=== PATIENT | male | born 1955 | race Caucasian/White ===

== ENCOUNTER 2024-06-20 08:10 | Observation (INO) | payer OTHER, SELFPAY ==
[2024-06-20] VITALS (32 sets, daily range): BP systolic 108–183; BP diastolic 73–128; BMI 30.3
[2024-06-20 04:09] LABS: % Basophils 0.8 % (0-2); % Eosinophils 0.8 % (0-6); % Immature Granulocytes 0.4 % (0-0.5); % Lymphocytes 25.6 % (20.5-51.1); % Monocytes 17.4 % (1.7-9.3); Absolute Lymphocytes 1.3 10^3/uL (1.2-3.4); Absolute Monocytes 0.9 10^3/uL (0.1-0.6); Absolute Neutrophils 2.8 10^3/uL (1.4-6.5); Hematocrit 49.7 % (39.0-52.0); Hemoglobin 17.3 g/dL (13.0-18.0); Mean Corp Hgb Conc. 34.8 g/dL (33.0-37.0); Mean Corpuscular Hgb 30.2 pg (27.0-31.0); Mean Corpuscular Volume 86.9 fL (80.0-94.0); Mean Platelet Volume 9.9 fL (7.4-10.4); Nucleated Red Blood Cells % 0 % (-); Platelet Count 198 10^3/uL (130-400); Red Blood Cell Count 5.72 10^6/uL (4.70-6.10); Red Cell Dist. Width 12.8 % (11.5-14.5); White Blood Cell Count 5.1 10^3/uL (4.8-10.8)
[2024-06-20] MEDS: CARDIZEM 20 MG IV (04:15)
[2024-06-20 04:26] LABS: ALT (SGPT) 35 U/L (0-50); AST (SGOT) 72 U/L (17-59); Albumin 5.2 g/dl (3.5-5.0); Alkaline Phosphatase 68 U/L (38-126); Blood Urea Nitrogen 34 mg/dl (9-20); Calcium 8.9 mg/dl (8.4-10.2); Carbon Dioxide 24 mmol/L (22-30); Chloride 101 mmol/L (98-107); Estimated Creatinine Clearance 54 ml/min; Glucose 111 mg/dl (70-99); Magnesium 2.1 mg/dl (1.6-2.3); Sodium 139 mmol/L (135-145); Total Bilirubin 0.7 mg/dl (0.2-1.3); Total Protein 9.3 g/dl (6.3-8.2)
[2024-06-20] MEDS: CARDIZEM 125 IV (04:33)
[2024-06-20 04:57] LABS: TSH Reflex To Free T4 1.95 uIU/ml (0.47-4.68)
--- NOTE | 2024-06-20 05:29 | ED.GENMED ---
History of Present Illness
General
Chief Complaint: Cardiac Symptoms
Source: patient
Exam Limitations: none
Time Seen by Provider: 06/20/24 04:28
Nursing documentation reviewed up to this point in time: agreed with
History of Present Illness
History of Present Illness:
This is a 68-year-old gentleman who has history of hypertension, chronically maintained on losartan. He presents with palpitations feeling that his heart is beating rapidly and somewhat irregular that began around 10:30 PM tonight. Palpitations
seem worse when he is lying down. He denies chest pain nor shortness of breath. No dyspnea on exertion. He does note mild URI several days ago, have since resolved. He had been using decongestant nasal spray for perhaps 2 days but stopped this
over a day or 2 ago. He denies decongestant use. Denies significant alcohol use. He does smoke marijuana from time to time.
No history of similar episodes in the past.
Past History
Past History
ED Past Medical History: HTN and Other (Previous Lyme's disease, previous TIA)
Social History
Tobacco: Non-smoker
Alcohol: Occasional
Drug: Marijuana
Personal:
Living: with family
Employment: Retired
Family History
Family History: Negative Diabetes, Hypertension or CAD
Phy Exam
Physical Exam
Physical Exam:
GENERAL: Alert , in no apparent distress
EYE: pupils equal and reactive
NECK: Supple, no significant adenopathy.
ENT: o/p clr, mmm.
CARDIAC: Irregularly irregular, tachycardic
LUNGS: Clear breath sounds bilaterally, no acute respiratory distress,
ABDOMEN: Soft, without focal tenderness, no r/g, no cvat
NEUROLOGICAL: Alert and oriented, no focal neuro deficits
SKIN: Warm and dry, skin intact.
MUSCULOSKELETAL: No edema, well perfused.
PSYCH: Normal and appropriate interaction.
Course
Orders/Labs/Results
Orders:
Orders
06/20/24 03:28
Electrocardiogram (*1) Urgent
Reason for Study: Palpitations
06/20/24 03:29
EKG- Treatment ONCE
06/20/24 03:55
CMP [Comprehensive Metabolic Panel] Urgent
Cardiovascular Evaluation Urgent
Comment: ADD ON
Complete Blood Count/With Diff Urgent
Glycohemoglobin (HgbA1c) Urgent
LDL Cholesterol, Direct Urgent
Comment: ADD ON
Magnesium Urgent
TSH Reflex To Free T4 Urgent
Troponin I Urgent
06/20/24 04:14
Diltiazem 125 mg/125 ml Nss [Cardizem] 125 mg in 125 ml .ROUTE .STK-MED
Diltiazem HCl [Cardizem] 20 mg IV NOW STA
Diltiazem HCl [Cardizem] 25 mg .ROUTE .STK-MED ONE
06/20/24 04:45
Diltiazem 125 mg/125 ml Nss [Cardizem] 125 mg in 125 ml IV PER PROTOCOL
Initial dose in mg/hr, then titrate:: 5
Titrate to keep:: Heart rate 80-100 bpm
Titrate by mg/hr:: 5 mg/hr
Frequency of titrations (minutes):: 15
Maximum dose in mg/hr:: 15
06/20/24 05:04
Propofol [Diprivan] 20 ml .ROUTE .STK-MED
06/20/24 05:56
Electrocardiogram (*1) Urgent
Reason for Study: Atrial Fibrillation
06/20/24 05:57
EKG- Treatment ONCE
06/20/24 06:25
CR Chest Portable - 1 View Urgent
Comment:
Reason For Exam: new onset afib with RVR, HTN, cough
Reason Study Needs to be Portable: Unable to Transport
06/20/24 06:26
PTT Urgent
06/20/24 06:58
Admit/Transfer Patient As Directed
Co-Sign Provider:
Level of Care: Observation services
Assign to:: IVU
Physician / Group: hospitalist
Diagnosis: afib rvr
PRN Pain Medication Management As Directed
May give lesser potent ordered pain med per pt: Yes
preference::
Protocol:: Medication orders for pain may be administered in a
manner that supports deferring to patient preference
when the pt is:
- Requesting an ordered lesser potent pain medication.
Least to most potent pain medications are defined
as: acetaminophen < NSAID < tramadol < opioids
(morphine, oxycodone, hydromorphone).
- Requesting a lesser dose of the same medication IF
ORDERED.
- Requesting a less intrusive route of administration
if both routes are prescribed by the provider (PO <
IV).
06/20/24 06:59
Code Status As Directed
Resuscitation Status: Full Code
06/20/24 07:03
Add On- LAB Stat
Tests Added?: magnesium level, Hemoglobin a1c, total chol, ldl, hdl, trig
Abnormal Lab Results
06/20/24
03:55
Absolute Monos (auto) 0.9 H 10^3/uL
(0.1-0.6)
Monocytes % 17.4 H %
(1.7-9.3)
BUN 34 H mg/dl
(9-20)
Creatinine 1.8 H mg/dL
(0.7-1.3)
Glucose 111 H mg/dl
(70-99)
AST 72 H U/L
(17-59)
Troponin I 0.090 H* ng/ml
Total Protein 9.3 H g/dl
(6.3-8.2)
Albumin 5.2 H g/dl
(3.5-5.0)
06/20/24 03:55
06/20/24 03:55
Vital Signs
Initial and Last Documented VS:
Initial Vital Signs
Resp
24
06/20/24 03:31
Last Documented Vital Signs
Temp Pulse Resp BP Pulse Ox
98.0 F 98 17 146/95 97
06/20/24 06:25 06/20/24 06:30 06/20/24 06:30 06/20/24 06:30 06/20/24 06:30
Procedures
Cardioversion
Indication:: Afib
Performed by:: myself
Synchronized?: Yes
Energy Used: 150 joules
Number of attempts: 2
Successful?: No (briefly successful in zoroastrianism of normal sinus rhythm but then reverted )
ASA Risk Score: Class II
Any reaction or bad outcome to prior sedation/anesthesia?: No history of a reaction
Sedation level to be attained: moderate
Chart and allergies reviewed: Yes
Patient reassessed prior to sedation: Yes
Time out completed at (validating right patient & procedure): 05:54
History of difficult intubation: No
Airway free of obstruction: Yes
Patient has a gag reflex: Yes
Patient is able to open mouth: Yes
Patient has no dentures: Yes
Patient has no loose teeth: Yes
Medication administered by Provider during Moderate Sedation: IV Propofol (mg)
Total dose administered: 90
Time drug administered: 05:55
Start Time: 05:55
Stop Time: 06:10
MDM/Problems Addressed
Differential Diagnosis Includes:
Patient presents with new onset palpitations and EKG shows atrial fibrillation with rapid ventricular response.
He is hemodynamically stable in fact a bit hypertensive.
Other than palpitations he remains asymptomatic, denies chest pain nor shortness of breath. No dizziness nor lightheadedness.
Will initiate IV Cardizem for rate control and this should help improve his blood pressure.
Unclear what his blood pressure has been running chronically.
Labs thus far reveal unremarkable CBC.
Chemistries show elevated creatinine of 1.8. This is trended up from only 1 previous result of 1.4 2019. Patient does not recall history of renal insufficiency but I suspect he may have a bit of renal insufficiency. He admits that he avoids
NSAIDs and only takes Tylenol as needed for pain.
TSH is pending.
Troponin is pending; patient denies chest pain but there is some concern for LVH with strain pattern on EKG.
Chronic conditions affecting care: HTN and Other (Questionable history of TIA in the past)
*Radiology
Radiology exam reviewed: preliminary read by ED provider (Chest x-ray shows borderline cardiomegaly, concern for potential mild CHF versus mild interstitial lung disease.)
*Pulse Oximetry
Patient hypoxic: no
*EKG
Interpreted by ED Provider?: Yes
Interpretation: abnormal
Comparison EKG: no comparison EKG present
Rate: tachycardiac
Rhythm: a-fib
[place]: left axis deviation
Interval: normal QT interval
QRS Pattern: left vent hypertrophy
Ischemia: non-specific ST changes
*Slitting Machine Operator Helper Interpretation
Rate: tachycardiac
Interpretation: abnormal
Rhythm: a-fib
*Critical Care Note
Total Time (30-74mins, 75-104mins- exclusive of procedures): 30
comment:
Critical care statement: A total of 30 minutes of critical care time was provided for this patient. This includes management of unstable vital signs, evaluation of the patient at bedside, reviewing the patient's pertinent medical records, discussion
with consultants, review of old EKGs and review of pertinent medical records. This time with separate from time utilized to perform the aforementioned documented procedures
Update Note
Update Note:
06:10
Troponin mildly elevated 0.09.
Patient continues to deny chest pain or shortness of breath. Unclear if this is an element of A-fib with RVR.
Questionably related to chronic kidney disease.
He is noted to be moderately hypertensive which may be an element as well.
Synchronized electrical cardioversion attempted and was successful x 2 in briefly restoring normal sinus rhythm but then returned to atrial fibrillation.
Elected to forego further cardioversion attempts.
Patient tolerated procedure without complications.
IV Cardizem resumed for rate control.
Patient is awake and alert, offers no complaints.
Case discussed with cardiology. Recommends patient be admitted to hospitalist service and will evaluate and consult.
Patient agreeable with this plan.
07:30
Chest x-ray shows borderline cardiomegaly, concern for mild CHF versus mild interstitial lung disease. No evidence of infiltrate.
Will add BNP.
ED Attending Note
-
Portions of this chart may have been created with voice recognition software.� Occasional wrong word or��sound alike� substitutions may have occurred due to the inherent limitations of voice recognition software.
Discharge Plan
Departure
Patient Disposition: Admit
Date of Disposition: 06/20/24
Time of Disposition: 06:26
Admit to doctor: Ligia
Presentation/result/management discussed w/ accepting MD/DO: Hospitalist
Condition: Serious
Discharge Problem:
New onset A-fib with RVR, Elevated troponin, Accelerated essential hypertension, Chronic kidney disease (CKD), stage III (moderate)
Prescriptions:
No Action
losartan 100 mg Tablet
100 mg PO DAILY
Referrals:
Beth Kruse DO [Family Provider] -
Interventions
Interventions:
*Risk Screen - Suicide Last Done: 06/20/24 03:31
*General Assessment Last Done: 06/20/24 04:05
*Neglect/Abuse Screening Last Done: 06/20/24 03:31
*ED COVID-19 Vaccine History Last Done: 06/20/24 04:05
ED- Pulmonary Assessment Last Done: 06/20/24 04:05
ED- Cardiac Assessment Last Done: 06/20/24 04:05
Discharge Date and Time
Print Language: JAPANESE
--- NOTE | 2024-06-20 06:47 | HPS.HSE ---
Family Physician
-
Family Physician: Beth Kruse
Chief Complaint
-
Palpitations
History of Present Illness
This is a 68-year-old with past medical history significant for CKD stage III and hypertension presenting to the emergency department with acute onset of palpitations at around 10pm as he laid to sleep.
Patient reports that he had URI symptoms starting about 4 days ago. Mostly sinus congestion and rhinorrhea. He denies any cough or shortness of breath. He denies fevers or chills. He denies nausea or vomiting. He reports mild diarrheal
symptoms. He does note some sick contacts. He otherwise denies chest pain, orthopnea PND or lower extremity swelling. Patient was tolerating oral normally.
He stated that he was in usual state of health up until just going to bed last night when he felt palpitations which he described as heart racing and beating out of his chest. There was no associated chest pain or shortness of breath. There was no
associated lightheadedness.
He denies any such prior episodes. He reports 1 episode of syncope that was due to vasovagal.
Patient reports occasional cocaine use with last use about a month ago. He reports occasional cannabis. He denies any other recreational drugs. Patient denies significant alcohol use.
In the emergency department he was tachycardic to the 150s on arrival. He was hemodynamically stable and had normal oxygen on room air. ECG shows atrial fibrillation at rate of [address] or T wave changes. Troponin was 0.09. CBC
was unremarkable. Electrolytes are within normal. Creatinine was 1.8 up from 1.42 years ago. Chest x-ray shows no acute infiltrates.
Patient was started on diltiazem and reports feeling better almost immediately. There was attempted cardioversion giving known onset of symptoms. He was cardioverted twice but ultimately unsuccessfully. He is currently in atrial fibrillation but
rate controlled in the 90s to low 100.
Medical History
Past Medical History
Past Medical History: Reports HTN and Renal Failure (CKD stage III)
Past Surgical History: Reports Other (anal fissure repair)
Social History
Tobacco: Non-smoker
Alcohol: Occasional
Drug: Marijuana and Cocaine (rare user)
Personal:
Living: With Family
Employment: Employed
Family History
Family History: Not pertinent
Allergies / Home Medications
Allergies reflects when Allergies were last updated in [employer].
Home Medications with original date entered in [employer]
Allergy/Medication List:
Allergies
Allergy/AdvReac Type Severity Reaction Status Date / Time
No Known Allergies Allergy Unverified 08/20/18 19:58
Home Medications
losartan 100 mg tablet 100 mg PO DAILY 06/20/24
Review of Systems
-
History Source: Patient
Constitutional: Reports No Symptoms
EENT: Reports No Symptoms
Respiratory: Reports No Symptoms
Cardiac: Reports Palpitations
Abdomen/GI: Reports No Symptoms
: Reports No Symptoms
Musculoskeletal: Reports No Symptoms
Skin: Reports No Symptoms
Neurological: Reports No Symptoms
Endocrine: Reports No Symptoms
Hematologic/Lymphatic: Reports No Symptoms
Psych: Reports No Symptoms
Physical Exam
Vital Signs
Vital Signs
Temp Pulse Resp BP Pulse Ox
98.0 F 98 17 146/95 97
06/20/24 06:25 06/20/24 06:30 06/20/24 06:30 06/20/24 06:30 06/20/24 06:30
Physical Exam
General: Well Developed, Well Nourished, No Apparent Distress and Comfortable
HEENT: NormoCephalic, Anicteric, Moist mucous membranes and Atraumatic
Respiratory: Clear
Cardiac: S1/S2 and Irregular Rhythm
Breast: Deferred by me
GI: Non Tender, Non Distended and Normal Bowel Sounds
Rectal: Deferred by Provider
Genito-urinary: Deferred by me
Musculoskeletal: No Clubbing
Skin: Warm
Neuro: AO x 3 and Nonfocal/grossly intact
Hematologic/Lymphatic: No Lymphadenopathy
Psych: Calm
Laboratory Results
-
06/20/24 03:55
06/20/24 03:55
Laboratory Results
Total Bilirubin 0.7 mg/dl (0.2-1.3) 06/20/24 03:55
AST 72 U/L (17-59) H 06/20/24 03:55
ALT 35 U/L (0-50) 06/20/24 03:55
Alkaline Phosphatase 68 U/L (38-126) 06/20/24 03:55
Troponin I 0.090 ng/ml H* 06/20/24 03:55
Data Reviewed
-
Diagnostic Radiology: Image Personally Visualized and interpreted
Medical Tests (Nuc Med, Echo, EKG etc): Image Personally Visualized and interpreted
Lab Data: Labs Reviewed by me
Old Records: Reviewed
Impression/Plan
-
IMPRESSION:
New onset rapid atrial fibrillation.
PLAN:
AFIB RVR - new onset rapid afib in patient with hypertension and CKD. No prior strokes, no known diabetes. Failure of cardioversion attempts x 2.
- admit to ivu
- currently rate controlled on diltiazem and asymptomatic
- onset of symptoms around 10pm thursday evening but unlikely to require further cardioversion given rate control
- CHA2Ds@Vasc = 2, start eliquis
- echo, a1c
- trend troponin
- cardiology consultation
DVT PPX - starting eliquis
Code status - full code
[2024-06-20 07:02] LABS: APTT 34.3 Sec (23.4-35.0)
[2024-06-20 07:41] LABS: HDL Cholesterol 37 mg/dl; LDL Cholesterol, Calculated 115 mg/dl; Total Cholesterol 174 mg/dl (50-199); Triglyceride 111 mg/dl (10-149); Very Low Density Lipoprotein 22 mg/dl (0-30)
[2024-06-20 07:51] LABS: LDL Cholesterol, Direct 90 mg/dl
[2024-06-20 08:26] LABS: NT-proBNP 940 pg/ml
--- NOTE | 2024-06-20 08:36 | CON.CAR ---
Addendum entered and electronically signed by uTan Jesus MD 06/20/24 10:26:
I saw and examined the patient.
The SUPERVISOR POST WAVE's note was reviewed and I agree with the note.
Comment:
68yo M with HTN and CKD who presents with palpitations found to be in A-fib with RVR. No obvious risk factors. He is physically active, does not have ALEKSANDER, does not drink excessive alcohol, and has no known structural heart disease. He has since
converted to normal sinus rhythm on a diltiazem drip. We will start him on 120 mg diltiazem ER daily. He has also been started on Eliquis 5 mg twice daily for anticoagulation. Echocardiogram to rule out structural heart disease. I advised him to
abstain from alcohol and get an outpatient sleep study. If his echocardiogram is normal, he can be discharged today and we will arrange outpatient follow-up.
Original Note:
Consultation
Consultation Request
Date/Time Consultation Requested: 06/20/24820
Date/Time Consultation Performed: 06/20/24820
Requesting Provider: Dr. Strong
Performing Provider: Aleida BUCHANAN for Dr. Jesus
Reason for Consultation: AFIB
Medical History
-
Chief Complaint: palpitations
History of Present Illness:
68 y/o male with hypertension and CKD (he was not awake of this, but labs 2019 creat 1.4, currently 1.8), TIA, hx Lyme disease who is here for evaluation of palpitations. Briefly, he had a cold from Thursday to Thursday. Last night around 10 PM, he
felt palpitations. He came to the ER and was seen to be in AFIB with RVR. Cardioversion attempt was made in ER, but was unsuccessful. He is now rate-controlled on a diltiazem drip and feeling improved. Eliquis has been initiated. He is in no
distress at the time of my assessment.
Past Medical History
Past Medical History: HTN and Other (as above)
Social History
Tobacco: Non-Smoker
Alcohol: Occasional
Drug: Marijuana (a few times per week) and Cocaine (once on ABEBA this past year)
Personal:
Living: With Family
Family History
Family History: Reviewed & Not Pertinent
Allergies / Home Medications
Allergy/AdvReac Type Severity Reaction Status Date / Time
No Known Allergies Allergy Unverified 08/20/18 19:58
�Medication �Instructions �Recorded �Confirmed �Type
losartan 100 mg tablet 100 mg PO DAILY 06/20/24 06/20/24 History
Review of Systems
-
History Source: Patient
All other systems: Negative unless noted
Respiratory: Other (cold with congestion last week)
Cardiac: Palpitations
Physical Exam
Vital Signs
Temp Pulse Resp BP Pulse Ox
98.0 F 98 17 146/95 97
06/20/24 06:25 06/20/24 06:30 06/20/24 06:30 06/20/24 06:30 06/20/24 06:30
Lab Results
06/20/24 03:55
06/20/24 03:55
Troponin I 0.090 ng/ml H* 06/20/24 03:55
Tbi-M-Yojldycfpup Pept 940 pg/ml 06/20/24 03:55
Physical Exam
General: Well Developed, Well Nourished and No Apparent Distress
HEENT: Normocephalic and Anicteric
Respiratory: Clear and Non Labored Respirations
Cardiac: Irregular Rhythm
Musculoskeletal: No Edema
Skin: Warm and Dry
Neuro: AO x 3
Psych: Calm
Impression / Plan
-
AFIB: new diagnosis, type unknown
-symptoms started last night at 10 PM
-continue IV diltiazem for now, which requires intensive monitoring- eventual transition to PO
-[id number] score is 4 for age, HTN, and hx TIA. Eliquis 5 mg PO BID has been initiated c/s CM to ensure affordable.
-will discuss rhythm control plan with neurological surgeon
-echo today
-TSH normal
-OP sleep study
-he does not routinely use cocaine, but I told him he should not ever use it again- he is agreeable. Additionally, we reviewed limiting ETOH, which he reports is not a problem.
CKD (YE?):
-creatinine was 1.4 2019, now 1.8- unknown values in between
-follow creat, management per primary team
HTN:
-elevated
-on losartan as OP
-monitor on diltiazem drip
Abnormal troponin:
-acute, non-ischemic myocardial injury in setting of AFIB with RVR
-trending to peak
-no CP- normally active without issue
-check echo
Data Reviewed
-
EKG: Tracing Personally Visualized and interpreted (AFIB LAFB LVH)
Radiology: Image Personally Visualized and interpreted (no acute disease of chest to my review)
Medical Tests (Nuc Med, Echo etc): Other (echo ordered)
Labs: Labs Reviewed by me
[2024-06-20] MEDS: ELIQUIS 5 MG PO (10:27)
[2024-06-20] MEDS: COZAAR 100 MG PO (10:27)
[2024-06-20] MEDS: CARDIZEM CD 120 MG PO (10:27)
[2024-06-20 10:36] LABS: Glycohemoglobin (HgbA1c) 5.5 % (4.0-5.6)
--- NOTE | 2024-06-20 15:32 | W.PN.UPDATE ---
Update Note
Progress Note Update
Nonbillable note
Paroxysmal A-fib with RVR -patient converted to NSR, s/p CV x2. Echocardiogram clear. Cardiology cleared patient to be discharged on regimen of oral diltiazem/Eliquis. Patient to follow-up in office. Patient instructed to avoid alcohol/caffeine
Troponin elevation - non ischemic myocardial injury related
CKD IIIB -no previous labs except in 2019 creatinine 1.4 today today creatinine 1.8. Instructed patient to follow-up with primary care physician for further follow-up.
Discharge home
--- NOTE | 2024-06-21 15:59 | W.DCSUMMARY ---
Discharge Summary
Discharge Data
Date of Admission: 06/20/24
Date of Discharge: 06/20/24
-
Pending Results: No
Hospital Course
Discharging Physician : Dr Ant Cook
Disposition : To home
Primary care physician : Dr Beth Kruse
Principal Discharge diagnosis :
Paroxysmal A-fib with rapid ventricular rate
Chronic Discharge diagnosis :
Essential hypertension
History of alcohol use
Chronic kidney disease stage IIIb
Hospital Course :
Patient is a 68-year-old male with past medical history came to ER with new onset of palpitation at home. In ER evaluation showing patient having A-fib with rapid ventricular rate. Patient underwent cardioversion attempt x 2 but remained in A-fib.
Patient was started on Cardizem drip with which patient converted to normal sinus rhythm. Cardiology was involved in care and patient had an echocardiogram which was normal. Cardiology recommended patient to be discharged on regimen of
diltiazem/Eliquis. Patient will follow-up with cardiology in the office postdischarge.
Important imaging findings :
None
Procedure findings :
None
Discharge Plan
-
Patient Disposition: Home (Routine Discharge)
Discharge Diagnosis/Procedures: Parox afib, CKD ?
Condition: Fair
Diet: Regular
Additional Diets: Avoid alcohol/Caffeine
Activity: As tolerated
Driving Restrictions: As prior to admission
Bathing Restrictions: OK to Shower
Referrals:
Beth Kruse DO [Family Provider] - in one week
Laila Porras CRNP [Specified Professional Personl] - 07/13/24 3:00 pm
Prescriptions:
New
diltiazem HCl 120 mg Capsule,Extended Release 24hr
120 mg PO DAILY Qty: 30 2RF
Eliquis 5 mg Tablet
5 mg PO BID Qty: 60 2RF
Continued
losartan 100 mg Tablet
100 mg PO DAILY
Discharge Orders:
Discharge Patient (As Directed); Ordered 06/20/24
Ordered By: Ant Cook
Discharge Date and Time
Discharge Date/Time: 06/20/24 15:30
Print Language: INDONESIAN
== END 2024-06-20 15:30 | disposition home or self-care (01) ==
LOC: ED 08:10
PROVIDERS: Physician Assistant; ADMITTING PHYSICIAN Internal Medicine; ATTENDING PHYSICIAN Hospitalist; EMERGENCY PHYSICIAN Emergency Medicine; FAMILY PHYSICIAN Family Medicine; OTHER PHYSICIAN Student in an Organized Health Care Education/Training Program
DX: I48.0 Paroxysmal atrial fibrillation (principal); R00.2 Palpitations; I12.9 Hypertensive chronic kidney disease with stage 1 through stage 4 chronic kidney disease, or unspecified chronic kidney disease; R00.0 Tachycardia, unspecified; R05.9 Cough, unspecified; I5A Non-ischemic myocardial injury (non-traumatic); R79.89 Other specified abnormal findings of blood chemistry; N18.32 Chronic kidney disease, stage 3b; J34.89 Other specified disorders of nose and nasal sinuses; R09.81 Nasal congestion; R19.7 Diarrhea, unspecified; R55 Syncope and collapse; F14.90 Cocaine use, unspecified, uncomplicated; F12.90 Cannabis use, unspecified, uncomplicated; J98.4 Other disorders of lung; I44.4 Left anterior fascicular block; I35.0 Nonrheumatic aortic (valve) stenosis; I49.3 Ventricular premature depolarization; Z86.73 Personal history of transient ischemic attack (TIA), and cerebral infarction without residual deficits; Z86.19 Personal history of other infectious and parasitic diseases
CPT/HCPCS: 71045; 80053; 80061; 83036; 83721; 83735; 83880; 84443; 84484; 85025; 85730; 92960; 93005; 93306; 96374; 99152; 99291; G0378

== ENCOUNTER 2024-06-29 22:43 | Emergency (ER) | payer OTHER, SELFPAY ==
[2024-06-29 22:46] VITALS: BP 207/127
[2024-06-29 23:26] VITALS: BP 184/99
[2024-06-30] VITALS: BP 170/101
[2024-06-30 00:11] LABS: % Basophils 0.7 % (0-2); % Eosinophils 1.5 % (0-6); % Immature Granulocytes 0.3 % (0-0.5); % Lymphocytes 19.9 % (20.5-51.1); % Monocytes 10.9 % (1.7-9.3); % Neutrophils 66.7 % (42.2-75.2); Absolute Basophils 0.1 10^3/uL (0-0.2); Absolute Eosinophils 0.1 10^3/uL (0-0.7); Absolute Lymphocytes 1.9 10^3/uL (1.2-3.4); Absolute Neutrophils 6.4 10^3/uL (1.4-6.5); Hematocrit 39.2 % (39.0-52.0); Hemoglobin 13.6 g/dL (13.0-18.0); Mean Corp Hgb Conc. 34.7 g/dL (33.0-37.0); Mean Corpuscular Hgb 29.7 pg (27.0-31.0); Mean Corpuscular Volume 85.6 fL (80.0-94.0); Nucleated Red Blood Cells % 0 % (-); Platelet Count 298 10^3/uL (130-400); Red Blood Cell Count 4.58 10^6/uL (4.70-6.10); Red Cell Dist. Width 12.1 % (11.5-14.5); White Blood Cell Count 9.5 10^3/uL (4.8-10.8)
--- NOTE | 2024-06-30 00:22 | ED.GENMED ---
History of Present Illness
General
Chief Complaint: Heart Rate Problem
Source: patient
Exam Limitations: none
Time Seen by Provider: 06/29/24 23:08
Nursing documentation reviewed up to this point in time: agreed with
History of Present Illness
History of Present Illness:
Pleasant 68-year-old male presents to the emergency department with palpitations. Has a history of atrial fibrillation. Was seen in the emergency department 2 days ago. Discharged home asymptomatic. Was going to bed this evening and wanted to
rinse his nose with saline spray. He grabbed Afrin instead. He was concerned because he felt some palpitations immediately after using Afrin. He came in for evaluation. Upon arrival he was asymptomatic. Patient is on Eliquis. He has not missed
a dose.
Past History
Past History
ED Past Medical History: HTN and Other (Previous Lyme's disease, previous TIA)
Social History
Tobacco: Non-smoker
Alcohol: Occasional
Drug: Marijuana
Personal:
Living: with family
Employment: Retired
Family History
Family History: Negative Diabetes, Hypertension or CAD
Review of Systems
Review of Systems
Allergies reviewed?: Yes
All Other Systems: ROS reviewed and negative except as documented in HPI and ROS
Constitutional: Reports no symptoms
EENT: Reports no symptoms
Respiratory: Reports no symptoms
Cardiac: Reports no symptoms
ABD/GI: Reports no symptoms
: Reports no symptoms
Musculoskeletal: Reports no symptoms
Skin: Reports no symptoms
Neurological: Reports no symptoms
Endocrine: Reports no symptoms
Hematologic/Lymphatic: Reports no symptoms
Psychiatric: Reports no symptoms
Phy Exam
General Physical Exam
General Presentation: well appearing and no apparent distress
General Skin: warm and dry
General Habitus: normal
General Mental: alert
General Hydration: appears well hydrated
ENT Exam
ENT Exam: EOMI, pharynx normal, neck supple and normocephalic
Eye Exam
Eye Exam: PERRL, cornea clear and conjunctiva normal
Cardiovascular Exam
Cardiovascular Exam: regular rate/rhythm, no edema, no murmur and normal peripheral pulses
Pulmonary Exam
Pulmonary Exam: lungs clear, no respiratory distress, no rales, no crackles, no rhonchi, no stridor, no wheezing and no cough
Gastrointestinal Exam
Gastrointestinal Exam: normal bowel sounds, non tender, soft, no organomegaly, no pulsatile mass and non distended
Neurological Exam
Neurological Exam: alert, oriented x3, no motor deficits and speech normal
Musculoskeletal Exam
Musculoskeletal Exam: full ROM and no edema
Skin Exam
Skin Exam: normal color, warm/dry, no rash and no petechia
Psychiatric Exam
Psychiatric Exam: normal mood/affect
Course
Orders/Labs/Results
Orders:
Orders
06/29/24 22:48
ECG [Electrocardiogram (*1)] Urgent
Reason for Study: Tachycardia
EKG- Treatment ONCE
06/29/24 23:58
Complete Blood Count/With Diff Urgent
Comprehensive Metabolic Panel Urgent
TSH Urgent
Troponin I Urgent
Abnormal Lab Results
06/29/24
23:58
RBC 4.58 L 10^6/uL
(4.70-6.10)
Absolute Monos (auto) 1.0 H 10^3/uL
(0.1-0.6)
Lymphocytes % 19.9 L %
(20.5-51.1)
Monocytes % 10.9 H %
(1.7-9.3)
BUN 40 H mg/dl
(9-20)
Creatinine 1.6 H mg/dL
(0.7-1.3)
06/29/24 23:58
06/29/24 23:58
Vital Signs
Initial and Last Documented VS:
Initial Vital Signs
Temp Pulse Resp BP Pulse Ox
98.2 F 86 20 207/127 98
06/29/24 22:46 06/29/24 22:46 06/29/24 22:46 06/29/24 22:46 06/29/24 22:46
Last Documented Vital Signs
Temp Pulse Resp BP Pulse Ox
98.2 F 63 9 170/101 99
06/29/24 22:46 06/30/24 00:45 06/30/24 00:45 06/30/24 00:00 06/30/24 00:48
*Critical Care Note
Total Time (30-74mins, 75-104mins- exclusive of procedures): Not Applicable
ED Attending Note
-
Portions of this chart may have been created with voice recognition software.� Occasional wrong word or��sound alike� substitutions may have occurred due to the inherent limitations of voice recognition software.
Discharge Plan
Departure
Patient Disposition: Home (Routine Discharge)
Date of Disposition: 06/30/24
Time of Disposition: :
Patient with high blood pressure during this ER visit?: Yes
Condition: Good
Discharge Problem:
Palpitations, Chronic kidney disease (CKD), stage III (moderate)
Instructions: Palpitations (DC), BLOOD PRESSURE
Prescriptions:
No Action
losartan 100 mg Tablet
100 mg PO DAILY
diltiazem HCl 120 mg Capsule,Extended Release 24hr
120 mg PO DAILY Qty: 30 2RF
Eliquis 5 mg Tablet
5 mg PO BID Qty: 60 2RF
Referrals:
Beth Kruse DO [Family Provider] -
Activity Restrictions/Additional Instructions:
It was a pleasure meeting you and taking part in your care. We hope for your continued healing and wellness.
Please read discharge instructions in their entirety. However, they are for general education and may not describe your exact diagnosis at discharge. Information on your ER visit and medical conditions were discussed with you along with appropriate
follow up information...
If indicated, please take your medications as instructed and indicated on discharge paperwork.
Please schedule a follow up appointment as directed. Call to schedule an appointment
Please return to the emergency department with ANY change in, persisting, or worsening of symptoms. If any of your symptoms do not improve, or persist, or become more severe within 6-12 hours, please return to the emergency department for further
care.
Please return to the emergency department if you develop a headache, neck pain/stiffness, fever greater than 100.4F, chest pain, shortness of breath, persistent nausea, vomiting, slurred speech, difficulty walking, numbness/tingling, weakness, signs
of infection or any other symptoms that are worrisome to you.
If you have any questions or concerns please do not hesitate to call the Hospital at or E-mail me directly at [email or web address]
Interventions
Interventions:
*Risk Screen - Suicide Last Done: 06/29/24 22:46
*General Assessment Last Done: 06/30/24 00:46
*Neglect/Abuse Screening Last Done: 06/29/24 22:46
*ED COVID-19 Vaccine History Last Done: 06/30/24 00:46
ED- Cardiac Assessment Last Done: 06/30/24 00:48
ED- Pulmonary Assessment Last Done: 06/30/24 00:48
Discharge Date and Time
Print Language: YAKUT
[2024-06-30 00:34] LABS: ALT (SGPT) 37 U/L (0-50); AST (SGOT) 34 U/L (17-59); Alkaline Phosphatase 66 U/L (38-126); Blood Urea Nitrogen 40 mg/dl (9-20); Calcium 9.2 mg/dl (8.4-10.2); Carbon Dioxide 25 mmol/L (22-30); Chloride 103 mmol/L (98-107); Glucose 99 mg/dl (70-99); Sodium 136 mmol/L (135-145); Total Bilirubin 0.8 mg/dl (0.2-1.3); Total Protein 7.1 g/dl (6.3-8.2); eGFR 47.23
[2024-06-30 00:40] LABS: Troponin I 0.014 ng/ml
[2024-06-30 01:00] VITALS: BP 193/102
[2024-06-30 01:10] LABS: TSH 0.64 uIU/ml (0.47-4.68)
== END 2024-06-30 01:35 | disposition home or self-care (01) ==
LOC: EMR 22:43
PROVIDERS: EMERGENCY PHYSICIAN Student in an Organized Health Care Education/Training Program; FAMILY PHYSICIAN Family Medicine
DX: R00.2 Palpitations (principal); N18.30 Chronic kidney disease, stage 3 unspecified; I12.9 Hypertensive chronic kidney disease with stage 1 through stage 4 chronic kidney disease, or unspecified chronic kidney disease; I48.91 Unspecified atrial fibrillation; Z86.73 Personal history of transient ischemic attack (TIA), and cerebral infarction without residual deficits; Z79.01 Long term (current) use of anticoagulants
CPT/HCPCS: 99283; 80053; 84443; 84484; 85025; 93005

== ENCOUNTER 2024-12-04 09:40 | Emergency (ER) | payer OTHER, SELFPAY ==
[2024-12-04 09:46] VITALS: BP 176/110
[2024-12-04 10:05] LABS: Hematocrit 40.2 % (39.0-52.0); Hemoglobin 14.1 g/dL (13.0-18.0); Mean Corp Hgb Conc. 35.1 g/dL (33.0-37.0); Mean Corpuscular Volume 85.7 fL (80.0-94.0); Nucleated Red Blood Cells % 0 % (-); Platelet Count 248 10^3/uL (130-400); Red Cell Dist. Width 12.2 % (11.5-14.5)
[2024-12-04 10:23] LABS: ALT (SGPT) 28 U/L (0-50); AST (SGOT) 35 U/L (17-59); Albumin 4.3 g/dl (3.5-5.0); Alkaline Phosphatase 62 U/L (38-126); Blood Urea Nitrogen 34 mg/dl (9-20); Calcium 9.3 mg/dl (8.4-10.2); Carbon Dioxide 27 mmol/L (22-30); Chloride 105 mmol/L (98-107); Glucose 127 mg/dl (70-99); Potassium 3.9 mmol/L (3.5-5.1); Sodium 136 mmol/L (135-145); Total Protein 7.8 g/dl (6.3-8.2); eGFR 46.93
[2024-12-04 11:20] VITALS: BMI 31.0
--- NOTE | 2024-12-04 11:42 | ED.SKININJ ---
HPI-Injury
General
Chief Complaint: Skin Problem
Time Seen by Provider: 12/04/24 11:30
History of Present Illness-Injury
Initial Injury comments:
Patient presents the emergency department for wound check. He is a 69-year-old male with a history of atrial fibrillation on Eliquis who presents emergency department with left anterior valles wound. States he struck his leg on a tractor this past
Thursday. He was seen in urgent care started on Keflex and had wound dressing placed. When he remove the dressing and pulled a small piece of skin off. He would like this checked for infection. Denies any fevers or chills. Denies any worsening
of this pain.
Past History
Past History
ED Past Medical History: HTN and Other (Previous Lyme's disease, previous TIA)
Social History
Tobacco: Non-smoker
Alcohol: Occasional
Drug: Marijuana
Personal:
Living: with family
Employment: Retired
Family History
Family History: Negative Diabetes, Hypertension or CAD
Phy Exam
Physical Exam
Physical Exam:
General: No acute distress
Head: NCAT
Neck, Normal in appearance, no swelling
Respiratory: No Respiratory distress
Abdomen: No distension
Ext: There is a 4 x 4 round wound that is partially unroofed with red well-perfused tissue beneath. There is no surrounding induration or warmth. There is no purulence. No hematoma.
Neuro: OBRIEN, AOx4
Psych: Normal affect
Skin: Normal color
Course
Orders/Labs/Results
Orders:
Orders
12/04/24 09:57
CMP [Comprehensive Metabolic Panel] Urgent
Complete Blood Count/With Diff Urgent
Abnormal Lab Results
12/04/24
09:57
RBC 4.69 L 10^6/uL
(4.70-6.10)
Absolute Monos (auto) 0.7 H 10^3/uL
(0.1-0.6)
BUN 34 H mg/dl
(9-20)
Creatinine 1.6 H mg/dL
(0.7-1.3)
Glucose 127 H mg/dl
(70-99)
12/04/24 09:57
12/04/24 09:57
Vital Signs
Initial and Last Documented VS:
Initial Vital Signs
Temp Pulse Resp BP Pulse Ox
97.9 F 81 18 176/110 95
12/04/24 09:46 12/04/24 09:46 12/04/24 09:46 12/04/24 09:46 12/04/24 09:46
Last Documented Vital Signs
Temp Pulse Resp BP Pulse Ox
97.9 F 81 18 176/110 95
12/04/24 09:46 12/04/24 09:46 12/04/24 09:46 12/04/24 09:46 12/04/24 11:44
*Pulse Oximetry
SaO2: 95
Oxygen Mode of Delivery: Room air
Patient hypoxic: no
*Critical Care Note
Total Time (30-74mins, 75-104mins- exclusive of procedures): Not Applicable
ED Attending Note
ED Attending Note
ED Attending Note:
Wound clinically does not appear infected at this time. Patient has no fever or leukocytosis. He is on Keflex. I instructed him to continue this. I redressed the wound with nonadherent dressing.
-
Portions of this chart may have been created with voice recognition software.� Occasional wrong word or��sound alike� substitutions may have occurred due to the inherent limitations of voice recognition software.
Discharge Plan
Departure
Patient Disposition: Home (Routine Discharge)
Date of Disposition: 12/04/24
Time of Disposition: 11:44
Patient with high blood pressure during this ER visit?: Yes
Discharge Problem:
Abrasion of lower leg
Prescriptions:
No Action
losartan 100 mg Tablet
100 mg PO DAILY
diltiazem HCl 120 mg Capsule,Extended Release 24hr
120 mg PO DAILY Qty: 30 2RF
Eliquis 5 mg Tablet
5 mg PO BID Qty: 60 2RF
Referrals:
Beth Kruse DO [Family Provider, Family Practice]
Interventions
Interventions:
*Risk Screen - Suicide Last Done: 12/04/24 09:46
*General Assessment Last Done: 12/04/24 09:46
*Neglect/Abuse Screening Last Done: 12/04/24 09:46
*ED- Fall Risk Assessment Last Done: 12/04/24 11:20
*ED COVID-19 Vaccine History Last Done: 12/04/24 09:46
*Nursing Disposition Last Done: 12/04/24 11:49
ED-Skin Assessment Last Done: 12/04/24 11:20
Discharge Date and Time
Discharge Date/Time: 12/04/24 11:50
Print Language: [place] CIT[place]
== END 2024-12-04 11:50 | disposition home or self-care (01) ==
LOC: EMR 09:40
PROVIDERS: Student in an Organized Health Care Education/Training Program; EMERGENCY PHYSICIAN Emergency Medicine; FAMILY PHYSICIAN Family Medicine
DX: S80.812A Abrasion, left lower leg, initial encounter (principal); W22.09XA Striking against other stationary object, initial encounter; Z48.00 Encounter for change or removal of nonsurgical wound dressing; I10 Essential (primary) hypertension; I48.91 Unspecified atrial fibrillation; Z79.01 Long term (current) use of anticoagulants; Z86.73 Personal history of transient ischemic attack (TIA), and cerebral infarction without residual deficits
CPT/HCPCS: 99283; 80053; 85025